=== PATIENT | female | born 2005 | race Two or more races ===

== ENCOUNTER 2024-09-28 12:42 | Emergency (ER) | payer OTHER ==
[~2024-09-28] VITALS: Ht 149.9 cm; Wt 47.6 kg
[2024-09-28] MEDS ORDERED: 0.9 % SODIUM CHLORIDE 1,000 ML IV STA (13:34)
[2024-09-28] MEDS ORDERED: ONDANSETRON HCL 2 MG/ML VIAL IV STA (13:34)
[2024-09-28] MEDS ORDERED: ONDANSETRON HCL 2 MG/ML VIAL ONE ×4 (13:53→13:54)
[2024-09-28 14:33] LABS: BASO % 0.3 % (0.1-1.2); EOS % 2.6 % (0.7-7.0); HEMATOCRIT 40.4 % (34.1-44.9); HEMOGLOBIN 13.7 g/dL (11.2-15.7); LYMPH # 2.01 (1.18-3.74); LYMPH % 17.5 % (19.3-53.1); MEAN CORPUSCULAR HEMOGLOBIN 27.6 pg (25.6-32.2); MONO # 0.63 (0.24-0.82); MONO % 5.5 % (4.7-12.5); NEUT # 8.44 (1.56-6.13); NEUT % 73.7 % (34.0-71.1); RED BLOOD COUNT 4.97 M/uL (3.93-5.22)
[2024-09-28 15:01] LABS: PLATELET COUNT 290 K/uL (163-369)
[2024-09-28 15:13] LABS: ANION GAP 14 (10.0-20.0); BLOOD UREA NITROGEN 7 mg/dL (7-18); BUN CREA RATIO 14 (7.0-25.0); CALCIUM 9.5 mg/dL (8.5-10.1); CARBON DIOXIDE 25 mEq/L (21-32); CHLORIDE 104 mmol/L (98-107); GFR 158.94; GLUCOSE FASTING 78 mg/dL (65-100); OSMOLALITY SERUM 274 MOSM/KG (275-295); POTASSIUM 3.96 mEq/L (3.5-5.1); SODIUM 139 mmol/L (136-145)
[2024-09-28 16:30] LABS: PH,URINE 5.5 (5.0-8.0); URINE APPEARANCE Cloudy; URINE BILIRRUBIN Negative (NEGATIVE); URINE BLOOD Negative; URINE COLOR Yellow; URINE GLUCOSE Negative (NEGATIVE); URINE LEUKOCYTE Trace; URINE NITRATE Negative; URINE PROTEIN Trace (NEGATIVE)
[2024-09-28 16:33] LABS: URINE BACTERIA 2167.6 uL (0.0-1933); URINE EPITHELIAL CELLS 82.3 uL (0.0-38.8); URINE RBC 5.5 uL (0.0-20.8); URINE WBC 28.1 uL (0.0-23.2)
[2024-09-28 16:44] LABS: URINE CAST 0.14 uL (0.0-1.40); URINE KETONE >=160 (NEGATIVE)
[2024-09-28] MEDS ORDERED: PEPCID AC20 MG PO (19:01)
[2024-09-28] MEDS ORDERED: ONDANSETRON ODT8 MG PO (19:02)
== END 2024-09-28 19:13 | disposition home or self-care (01) ==
LOC: ER 12:42
PROVIDERS: Emergency Medicine
DX: O99.611 Diseases of the digestive system complicating pregnancy, first trimester (principal); K92.89 Other specified diseases of the digestive system; Z3A.13 13 weeks gestation of pregnancy; K52.89 Other specified noninfective gastroenteritis and colitis

== ENCOUNTER 2025-01-07 19:55 | Emergency (ER) | payer OTHER ==
[~2025-01-07] VITALS: Ht 157.5 cm; Wt 58.1 kg
[~2025-01-07 19:55] MED LIST: ONDANSETRON ODT8 MG PO; PEPCID AC20 MG PO
[2025-01-07] MEDS ORDERED: ACETAMINOPHEN 500 MG GEL..CAP PO ONE ×2 (21:00→21:12)
[2025-01-07] MEDS ORDERED: DEXAMETHASONE SODIUM PHOSPHATE 4 MG/ML VIAL IM ONE (21:00)
[2025-01-07] MEDS ORDERED: CETIRIZINE HCL 5 MG/5 ML ML PO ONE (21:00)
[2025-01-07] MEDS ORDERED: DEXAMETHASONE SODIUM PHOSPHATE 4 MG/ML VIAL ONE (21:12)
[2025-01-07] MEDS ORDERED: CETIRIZINE HCL 5MG/5ML BLIST.PACK PO ONE (21:13)
[2025-01-07 21:17] LABS: BASO % 0.2 % (0.1-1.2); EOS # 0.17 (0.04-0.54); EOS % 1.0 % (0.7-7.0); LYMPH # 1.25 (1.18-3.74); LYMPH % 7.0 % (19.3-53.1); MEAN PLATELET VOLUME 9.60 fl (9.4-12.4); MONO # 1.40 (0.24-0.82); MONO % 7.8 % (4.7-12.5); NEUT # 14.88 (1.56-6.13); NEUT % 83.1 % (34.0-71.1); RED CELL DISTRIBUTION WIDTH 13.3 % (11.6-14.4)
[2025-01-07 22:15] LABS: COVID-19 AG NEGATIVE (NEGATIVE)
[2025-01-07] MEDS ORDERED: DUI500 PO (22:26)
[2025-01-07] MEDS ORDERED: TUSNEL LIQUID178 ML PO (22:26)
[2025-01-07] MEDS ORDERED: CEFTRIAXONE SODIUM 1,000 MG VIAL ONE (22:26)
[2025-01-07] MEDS ORDERED: CEFTRIAXONE SODIUM 1,000 MG VIAL IM ONE (22:30)
== END 2025-01-07 22:51 | disposition home or self-care (01) ==
LOC: ER 19:55
PROVIDERS: General Practice
DX: Z33.1 Pregnant state, incidental (principal); Z3A.26 26 weeks gestation of pregnancy; J03.90 Acute tonsillitis, unspecified; Z20.822 Contact with and (suspected) exposure to COVID-19